=== PATIENT | female | born 1990 | race Caucasian/White ===

== ENCOUNTER 2017-12-02 14:43 | Emergency (ER) | payer OTHER, MEDICAID ==
[2017-12-02] MEDS: ADACEL/BOOSTRIX VACCINE (DIPHTH/PERTUSS/ACELL/TETANUS)0.5ML SYR (90715) IM (17:00)
[2017-12-02] MEDS: ACETAMINOPHEN 325 MG TAB PO (17:00)
== END 2017-12-02 17:13 | disposition home or self-care (01) ==
LOC: M ED 14:43
DX: S93.402A Sprain of unspecified ligament of left ankle, initial encounter (principal); X50.0XXA Overexertion from strenuous movement or load, initial encounter; Y92.89 Other specified places as the place of occurrence of the external cause; F33.9 Major depressive disorder, recurrent, unspecified; G43.909 Migraine, unspecified, not intractable, without status migrainosus; Z79.899 Other long term (current) drug therapy; Z88.8 Allergy status to other drugs, medicaments and biological substances
CPT/HCPCS: 90715

== ENCOUNTER → 2024-06-16 | Outpatient (CLI) | payer OTHER ==
[~2024-06-16] MED LIST: RANI15TA PO; ZOLO100T PO; [UNRECOGNIZED DRUG - CODE] PO
== END ==
LOC: M SOG 07:58
PROVIDERS: ATTEND Physician Assistant
DX: M25.552 Pain in left hip (principal)

== ENCOUNTER 2024-09-02 15:11 | Outpatient (RCR) | payer OTHER | END 2024-09-04 | LOC: M PT 15:11 | PROVIDERS: ATTEND Physician Assistant | DX: M25.552 Pain in left hip (principal) ==

== ENCOUNTER 2024-10-01 12:15 | Outpatient (RCR) | payer OTHER | END 2024-10-05 | LOC: M PT 12:15 | PROVIDERS: ATTEND Physician Assistant | DX: M25.552 Pain in left hip (principal) ==

== ENCOUNTER 2024-10-08 12:12 | Outpatient (RCR) | payer OTHER | END 2024-11-04 | LOC: M PT 12:12 | PROVIDERS: ATTEND Physician Assistant | DX: M25.552 Pain in left hip (principal) ==

== ENCOUNTER → 2025-04-30 | Outpatient (CLI) | payer OTHER ==
[~2025-04-30] MED LIST changes: +ISOVUE-300 61% 100 ML VIAL As Ordered ONE; +LIDOCAINE 1% MDV 20 ML VIAL As Ordered ONE; +methylPREDNISolone 80 MG/ML SUSP 1 ML VIAL As Ordered ONE
== END ==
LOC: M RAD 15:21
PROVIDERS: ATTEND Student in an Organized Health Care Education/Training Program
DX: M25.552 Pain in left hip (principal)
CPT/HCPCS: 20610; 77002; J1010; Q9967